=== PATIENT | female | born 1960 | race Hispanic/Latino ===

== ENCOUNTER → 2018-03-27 | Outpatient (CLI) | payer OTHER ==
[~2018-03-27] MED LIST: FLUO-125 PO; HYDR-2132 PO; PROG100C6 PO
== END | disposition home or self-care (01) ==
LOC: OIH 15:36
PROVIDERS: ATTEND Internal Medicine Cardiovascular Disease
DX: Z13.6 Encounter for screening for cardiovascular disorders (principal)
CPT/HCPCS: 75571

== ENCOUNTER 2018-10-18 23:55 | Emergency (ER) | payer OTHER | END 2018-10-19 04:17 | disposition home or self-care (01) | LOC: EDH 23:55 | DX: M25.562 Pain in left knee (principal); Z90.710 Acquired absence of both cervix and uterus; Z88.8 Allergy status to other drugs, medicaments and biological substances | CPT/HCPCS: 73562; 93971 ==

== ENCOUNTER 2018-11-06 07:00 | Day surgery (SDC) | payer BC ==
[2018-11-05 16:47] VITALS: BP 135/72
[2018-11-05 16:52] LABS: BASOPHILS % (AUTO) 0.6 % (0.0-5.0); HEMATOCRIT 38.5 % (36-48); MEAN CORPUSCULAR HEMOGLOBIN 27.1 pg (27.0-33.0); MEAN CORPUSCULAR HGB CONC 32.4 g/dL (32.0-36.0); MEAN CORPUSCULAR VOLUME 83.7 fL (79-99); MONOCYTES % (AUTO) 9.6 % (3.0-13.0); NEUTROPHILS % (AUTO) 57.8 % (40.0-77.0); PLATELET COUNT (AUTO) 262 K/uL (130-400); RED BLOOD CELL COUNT(AUTO) 4.59 MIL/uL (4.00-5.50); RED CELL DISTRIBUTION WIDTH 14.8 % (11.0-15.5); WHITE BLOOD COUNT (AUTO) 11.7 K/uL (4.8-10.8)
[2018-11-05 17:02] LABS: CREATININE 0.7 mg/dL (0.5-1.5); POTASSIUM 3.8 mmol/L (3.5-5.1)
--- NOTE | 2018-11-05 17:20 | NUR ---
LABS ABNORMAL WBC 11.[address] VERAS, NO FURTHER ORDERS GIVEN , OK TO PROCEED WITH SX
[2018-11-06] VITALS (14 sets, daily range): BP systolic 124–154; BP diastolic 63–88
[~2018-11-06] VITALS: Ht 162.6 cm; Wt 93.3 kg
[2018-11-06] MEDS: CLINDAMYCIN 900 MG/D5% WATER 50 ML IV SCH ×2 (06:00→08:30)
[~2018-11-06 07:00] MED LIST changes: +BIOT5000 PO; +CHOL-4 PO; -FLUO-125 PO; -HYDR-2132 PO; -PROG100C6 PO
--- NOTE | 2018-11-06 07:20 | NUR ---
POTENTIAL FOR INFECTION: SHAVED LEFT KNEE / LEG PER KRYS ÁLVAREZ MA, FOLLOWED BUY WITH WITH MARISA: 2% CHLORHEXIDINE GLUCONATE CLOTH PATIENT PRE-OP SKIN PREP.
[2018-11-06] MEDS ORDERED: LACTATED RINGERS 1000ML 1,000 ML IV ONE (07:24)
[2018-11-06] MEDS ORDERED: PREN-68 PO (07:40)
[2018-11-06] MEDS ORDERED: HYDROMORPHONE 1 MG/1 ML AMP ONE (08:10)
[2018-11-06] MEDS ORDERED: PROPOFOL 10 MG/ML 20ML VIAL IV ONE (08:16)
[2018-11-06] MEDS ORDERED: LIDOCAINE PF 2% 5ML ABBOJECT ONE (08:16)
[2018-11-06] MEDS ORDERED: MIDAZOLAM HCL 1 MG/ML 2ML VIAL ONE (08:16)
[2018-11-06] MEDS ORDERED: ONDANSETRON HCL 4 MG/2 ML VIAL ONE (08:18)
[2018-11-06] MEDS ORDERED: FENTANYL CITRATE PF 50 MCG/1 ML 2ML VIAL ONE (08:55)
[2018-11-06] MEDS ORDERED: KETOROLAC TROMETHAMINE 30MG/ML ONE ×2 (09:11→09:34)
[2018-11-06] MEDS ORDERED: SULF1TAB42 PO (09:28)
[2018-11-06] MEDS ORDERED: MEPERIDINE-PF 25 MG/ML SYG ONE (09:34)
--- NOTE | 2018-11-06 10:33 | NUR ---
PATIENT RETURNED FROM PACU IN NO DISTRESS. LEFT KNEE DRESSING IS CLEAN AND DRY, ICE PACK APPLIED TO LEFT KNEE
[2018-11-06] MEDS ORDERED: TRAM50TA4 PO (11:00)
--- NOTE | 2018-11-06 11:00 | NUR ---
DR. DOUGHERTY IN TO TALK TO PATIENT AND FAMILY, ALSO TO GIVE RX TO PATIENT.
== END 2018-11-06 11:28 | disposition home or self-care (01) ==
LOC: DAH 07:00
PROVIDERS: ATTEND Orthopaedic Surgery
DX: M23.222 Derangement of posterior horn of medial meniscus due to old tear or injury, left knee (principal); M94.262 Chondromalacia, left knee; M19.90 Unspecified osteoarthritis, unspecified site; Z79.899 Other long term (current) drug therapy; Z98.890 Other specified postprocedural states; Z68.35 Body mass index [BMI] 35.0-35.9, adult; Z82.49 Family history of ischemic heart disease and other diseases of the circulatory system; Z83.3 Family history of diabetes mellitus
CPT/HCPCS: 29881; 36415; 80048; 85025; A4606; A4649 ×2; A4930; A6223; J1170; J1885 ×2; J2001; J2175; J2250; J2405; J2704; J3010; J3490; J7120

== ENCOUNTER 2019-03-21 17:42 | Emergency (ER) | payer BC, OTHER ==
[~2019-03-21 17:42] MED LIST changes: +PREN-68 PO; +SULF1TAB42 PO; +TRAM50TA4 PO
[2019-03-21] MEDS ORDERED: LIDOCAINE 5% TOPICAL PATCH TP ONE (18:23)
== END 2019-03-21 18:58 | disposition home or self-care (01) ==
LOC: EDH 17:42
DX: S63.592A Other specified sprain of left wrist, initial encounter (principal); S83.8X2A Sprain of other specified parts of left knee, initial encounter; S29.011A Strain of muscle and tendon of front wall of thorax, initial encounter; Z88.8 Allergy status to other drugs, medicaments and biological substances; W18.39XA Other fall on same level, initial encounter; Y93.01 Activity, walking, marching and hiking; Y92.89 Other specified places as the place of occurrence of the external cause; Y99.8 Other external cause status
CPT/HCPCS: 71101; 73110; 73562